=== PATIENT | female | born 1955 | race Caucasian/White ===

== ENCOUNTER → 2020-05-08 | Outpatient (CLI) | payer MEDICARE ==
--- NOTE | 2020-05-08 13:19 | Diagnostic Imaging Report ---
EXAMINATION: Right lower extremity MRI from 05/08/2020. TECHNIQUE: Multiplanar, multisequence non contrast-enhanced MRI of the right lower extremity was accomplished. INDICATION: Patient stepped off a curb and injured knee. FINDINGS: Mild heterogeneity is seen within the patellar tendon which could be due to tendinosis. There is no discrete tear. No discontinuity. The distal quadriceps tendon is intact. The ACL and PCL are intact. There is heterogeneous signal intensity surrounding the MCL which is intact. Findings likely due to type II sprain. The lateral collateral ligamentous complex is intact. There is irregular heterogeneous high signal throughout the posterior horn and body of the medial meniscus consistent with a tear. The lateral meniscus is intact. There is [id number] loss of cartilage within the medial joint space. Cartilage in the lateral joint compartment is well preserved. There is thinning of the cartilage in the patellofemoral joint. There is a moderate joint effusion. IMPRESSION: 1. Tear of the posterior horn and body of the medial meniscus with the lateral meniscus intact. 2. Ligaments and tendons intact. 3. Joint effusion with tricompartmental degenerative disease. Dictated by: Dictated on workstation # [id number]
== END ==
LOC: RAD 11:00
PROVIDERS: ATTEND Physician Assistant
DX: S83.241A Other tear of medial meniscus, current injury, right knee, initial encounter (principal); S83.281A Other tear of lateral meniscus, current injury, right knee, initial encounter; M23.91 Unspecified internal derangement of right knee; M17.11 Unilateral primary osteoarthritis, right knee; X58.XXXA Exposure to other specified factors, initial encounter
CPT/HCPCS: 73721